=== PATIENT | female | born 1935 | race Caucasian/White ===

== ENCOUNTER 2018-12-27 06:45 | Emergency (ER) | payer MEDICARE | END 2018-12-27 08:46 | disposition home or self-care (01) | LOC: ER 06:45 ==

== ENCOUNTER 2019-02-28 12:31 | Emergency (ER) | payer MEDICARE ==
[~2019-02-28] VITALS: Ht 160 cm; Wt 66.7 kg
[~2019-02-28 12:31] MED LIST: ASPI-875 PO; DARI15TA4 PO; ETD400T; FRSM20T; FURO20TA4 PO; LSRT50T; OMEP20TA2 PO; OMG1KC PO; QUININE; RESTASIS EYE GTTS; RLX60T; VALS1TAB43 PO; VESICARE
[2019-02-28] MEDS ORDERED: CEPH-507 PO (12:52)
--- NOTE | 2019-02-28 12:53 | ED General ---
General Chief Complaint: Allergic Reaction Stated Complaint: FACIAL BURNING / SWELLING Nursing Triage Note: COMPLAINS OF FACIAL REDNESS AND BURNING SINCE DOING YARD WORK ON FRIDAY. Nursing Sepsis Screen: No Definite Risk Source of Information: Patient Exam Limitations: No Limitations History of Present Illness Date Seen by Provider: Feb 28, 2019 Time Seen by Provider: 12:48 Initial Comments To Er with c/o facial itching, swelling redness and burning since clearing brush around old tree stumps 2 days ago. Has used topical calamine lotion for the itch and topical betamethasone cream for this that she had left over at home. Timing/Duration: 1-2 Days Severity: Moderate Associated Systoms: Denies Symptoms Allergies and Home Medications Allergies Coded Allergies: No Known Drug Allergies (Verified Allergy, Unknown, 04/13/07) Home Medications Furosemide 20 Mg Tablet, 20 MG PO DAILY, (Reported) Patient Home Medication List Home Medication List Reviewed: Yes Review of Systems Review of Systems Constitutional: see HPI EENTM: see HPI Respiratory: no symptoms reported Cardiovascular: no symptoms reported Genitourinary: no symptoms reported Musculoskeletal: no symptoms reported Skin: see HPI Psychiatric/Neurological: No Symptoms Reported Hematologic/Lymphatic: No Symptoms Reported Past Tjsiyiy-Oksxxt-Olgcdy Hx Patient Social History Alcohol Use: Denies Use Recreational Drug Use: No Smoking Status: Never a Smoker Recent Foreign Travel: No Contact w/Someone Who Travel: No Recent Infectious Disease Expo: No Recent Hopitalizations: Yes Immunizations Up To Date Date of Pneumonia Vaccine: Jul 07, 2006 Past Medical History Surgeries: Yes (CATARACTS REMOVED,LUMPECTOMY,CARPAL TUNNEL, FX RIGHT SHOULDER) Eye Surgery, Orthopedic Respiratory: No Cardiac: Yes Hypertension Neurological: No Reproductive Disorders: No Gastrointestinal: Yes Gastroesophageal Reflux Musculoskeletal: Yes Arthritis Endocrine: No Cancer: No Psychosocial: No Integumentary: No Blood Disorders: No Physical Exam Vital Signs Vital Signs - First Documented 02/28/19 12:35 Temp 98.4 Pulse 72 Resp 16 B/P (MAP) 140/96 (111) Pulse Ox 96 O2 Delivery Room Air Capillary Refill : Less Than 3 Seconds Height, Weight, BMI Height: 5'3.00" Weight: 147lbs. oz. 66.242066yt; 23.34 BMI Method:Stated General Appearance: No Apparent Distress, WD/WN Eyes: Bilateral Eye Normal Inspection, Bilateral Eye PERRL, Bilateral Eye EOMI HEENT: PERRL/EOMI, TMs Normal, Other (there is some erythema of the chin, nose, cheeks. There is a honey colored exudate over some of these regions. this is most likely a rhus dermatitis with serous fluid from the vesicles. however, impetigo and/or secondary infection is possible. Will give betamethasone IM + Kenalog IM here + outpatient RX for keflex. ) Progress/Results/Core Measures Suspected Sepsis Recent Fever Within 48 Hours: No Infection Criteria Present: None New/Unexplained Altered Menta: No Sepsis Screen: No Definite Risk SIRS Temperature:98.4 Pulse: 72 Respiratory Rate: 16 Blood Pressure 140 /96 Mean: 111 Results/Orders My Orders Orders - GABRIELA LIZ APRN Betamethasone Acet/Na Phos Inj ([place] (02/28/19 13:00) Triamcinolone Acetonide Im (Kenalog-40) (02/28/19 13:00) Cephalexin Capsule (Keflex Capsule) (02/28/19 13:00) Vital Signs/I&O 02/28/19 12:35 Temp 98.4 Pulse 72 Resp 16 B/P (MAP) 140/96 (111) Pulse Ox 96 O2 Delivery Room Air Capillary Refill : Less Than 3 Seconds Blood Pressure Mean: 111 Departure Impression Primary Impression: Facial rash Disposition: 01 HOME, SELF-CARE Condition: Stable Departure-Patient Inst. Decision time for Depature: 12:51 Referrals: LILIYA MEDRANO MD (PCP/Family) Primary Care Physician Patient Instructions: Skin Rash (DC) Add. Discharge Instructions: 1. You can use benadryl at home for itching. One tablet every 6 hours. 2. The steroid injection given here is a long acting and short acting one. You do not need any additional steroids. Take the antibiotic as directed All discharge instructions reviewed with patient and/or family. Voiced understanding. Scripts Cephalexin (Keflex) 500 Mg Capsule 500 MG PO TID, #21 CAP Prov: GABRIELA LIZ APRN 02/28/19 GABRIELA LIZ APRN Feb 28, 2019 12:53
[2019-02-28] MEDS ORDERED: TRIAMCINOLONE ACET (KENALOG-40) 40 MG/ML 1 ML VIAL IM ONE (13:00)
[2019-02-28] MEDS ORDERED: CEPHALEXIN 250 MG (KEFLEX) CAP PO ONE (13:00)
[2019-02-28] MEDS ORDERED: BETAMETHASONE ACE/NA PHOS 6 MG/ML (CELESTONE SOLUSPAN) IM ONE (13:00)
[2019-02-28 13:13] VITALS: BP 140/67
== END 2019-02-28 13:13 | disposition home or self-care (01) ==
LOC: EDUNIT# 12:31 → ER 12:32
DX: R21 Rash and other nonspecific skin eruption (principal); I10 Essential (primary) hypertension; K21.9 Gastro-esophageal reflux disease without esophagitis
CPT/HCPCS: 99284

== ENCOUNTER 2020-12-09 11:53 | Emergency (ER) | payer MEDICARE ==
[~2020-12-09] VITALS: Ht 162.6 cm; Wt 64.9 kg
[~2020-12-09 11:53] MED LIST changes: +CEPH-507 PO
[2020-12-09 12:07] VITALS: BP 161/69
[2020-12-09] MEDS ORDERED: LIDOCAINE 1% INJ 20 ML 20 ML VIAL INJ ONE (12:15)
--- NOTE | 2020-12-09 12:15 | ED Fall/Injury ---
General Chief Complaint: Trauma-Non Activation Stated Complaint: FALL/FACIAL INJ Source: patient Exam Limitations: no limitations (GABRIELA LIZ APRN) History of Present Illness Date Seen by Provider: Dec 09, 2020 Time Seen by Provider: 12:11 Initial Comments To ER with a fall and subsequent facial injury. She tripped and struck the bottom part of her chin on a chair. No loss of consciousness. This occurred about 2 hours ago. She has pain in her jaw, she has a laceration to the inferior midline aspect of the jaw. She also has some midline low back pain that does not radiate Occurred: just prior to arrival Severity: moderate Injuries/Pain Location: face Context: tripped Loss of Consciousness: no loss of consciousness Associated Symptoms (Fall): No Headache; Neck Pain (GABRIELA LIZ APRN) Allergies and Home Medications Allergies Coded Allergies: No Known Drug Allergies (Verified Allergy, Unknown, 04/13/07) Home Medications Cephalexin 500 Mg Capsule, 500 MG PO TID Prescribed by: GABRIELA LIZ on 02/28/19 1252 Furosemide 20 Mg Tablet, 20 MG PO DAILY, (Reported) Patient Home Medication List Home Medication List Reviewed: Yes (GABRIELA LIZ APRN) Review of Systems Review of Systems Constitutional: see HPI Eyes: No Symptoms Reported Ears, Nose, Mouth, Throat: see HPI Respiratory: no symptoms reported Cardiovascular: no symptoms reported Genitourinary: no symptoms reported Musculoskeletal: no symptoms reported Skin: no symptoms reported Psychiatric/Neurological: No Symptoms Reported (GABRIELA LIZ APRN) Past Gigvdnd-Psmfuf-Mzfwon Hx Patient Social History Recent Hopitalizations: Yes (GABRIELA LIZ APRN) Immunizations Up To Date Date of Pneumonia Vaccine: Jul 07, 2006 (GABRIELA LIZ APRN) Past Medical History Surgeries: Yes (CATARACTS REMOVED,LUMPECTOMY,CARPAL TUNNEL, FX RIGHT SHOULDER) Eye Surgery, Orthopedic Respiratory: No Cardiac: Yes Hypertension Neurological: No Reproductive Disorders: No Gastrointestinal: Yes Gastroesophageal Reflux Musculoskeletal: Yes Arthritis Endocrine: No Cancer: No Psychosocial: No Integumentary: No Blood Disorders: No (GABRIELA LIZ APRN) Physical Exam Vital Signs Vital Signs - First Documented 12/09/20 12:07 Temp 36.4 Pulse 79 Resp 18 B/P (MAP) 161/69 (99) O2 Delivery Room Air (ERIKA CHAPA MD) Vital Signs Capillary Refill : (GABRIELA LIZ APRN) Height, Weight, BMI Height: 5'3.00" Weight: 147lbs. oz. 66.324150pr; 23.34 BMI Method:Stated General Appearance: WD/WN, no apparent distress HEENT: PERRL/EOMI, normal ENT inspection, TMs normal, other (The auricle of the left ear has some dried blood. No active bleeding no auricular hematoma. There is a 2 cm laceration inferior midline chin. No visible deformity) Neck: normal inspection, tender lateral Cardiovascular: regular rate, rhythm, no murmur Respiratory: no respiratory distress, no accessory muscle use Gastrointestinal: normal bowel sounds, non tender, soft Extremities: normal range of motion, non-tender Neurologic/Psychiatric: alert, normal mood/affect, oriented x 3 Skin: normal color, warm/dry (GABRIELA LIZ APRN) [place] Coma Score Best Eye Response: (4) Open Spontaneously Best Verbal Response: (5) Oriented Best Motor Response: (6) Obeys Commands [place] Total: 15 (GABRIELA LIZ APRN) Progress/Results/Core Measures Results/Orders Medications Given in ED Current Medications Medications Dose Ordered Sig/Lisa Route Start Time Stop Time Status Last Admin Dose Admin Lidocaine HCl 20 ml ONCE ONCE INJ 12/09/20 12:15 12/09/20 12:16 DC 12/09/20 12:30 20 ML (ERIKA CHAPA MD) Vital Signs/I&O 12/09/20 12:07 Temp 36.4 Pulse 79 Resp 18 B/P (MAP) 161/69 (99) O2 Delivery Room Air (ERIKA CHAPA MD) Progress Progress Note : Progress Note I was physically present in the emergency department as attending physician during the care of this patient. I was not directly involved in this patient's care. (ERIKA CHAPA MD) Departure Communication (Admissions) Laceration repair note: To the inferior midline aspect of the chin is a 2 cm laceration with depth to subcutaneous tissue. This was anesthetized with 3 mL of 1% lidocaine without epinephrine. Scrubbed with chlorhexidine/saline solution and irrigated with plain saline x60 mL. Closed with 1 continuous suture size 5-0 Prolene. To the posterior inferior aspect of the earlobe on the left there is a 1.5 cm laceration which was closed with 1 continuous suture size 5-0 Prolene and 1 simple interrupted suture size 5-0 Prolene. This is inferior and posterior to the cartilaginous material of the ear. (GABRIELA LIZ APRN) Impression Primary Impression: Laceration of jaw Additional Impression: Fall Disposition: HOME, SELF-CARE Condition: Stable Departure-Patient Inst. Decision time for Depature: 12:15 (GABRIELA LIZ APRN) Referrals: KIRBY SCHUMACHER MD (PCP/Family) Primary Care Physician Patient Instructions: Laceration Repair With Stitches (DC) Add. Discharge Instructions: 1. Return to ER for any concerns 2. Follow-up with your doctor next week. Return to ER in about 5 days to have the stitches removed. All discharge instructions reviewed with patient and/or family. Voiced unde rstanding. GABRIELA LIZ APRN Dec 09, 2020 12:15 ERIKA CHAPA MD Dec 09, 2020 15:38
--- NOTE | 2020-12-09 12:44 | Diagnostic Imaging Report ---
PROCEDURE: CT lumbar spine without contrast. TECHNIQUE: Multiple contiguous axial images were obtained through the lumbar spine without the use of intravenous contrast. Sagittal and coronal reformations were then performed. Auto Exposure Controls were utilized during the CT exam to meet ALARA standards for radiation dose reduction. INDICATION: Fall with low back pain. COMPARISON: 09/25/2015. DISCUSSION: Advanced degenerative disc disease is again noted, particularly at L5-S1. Advanced facet arthropathy is noted diffusely, stable. No acute fracture or subluxation identified. The sacroiliac joints are maintained. No pelvic fracture identified within the visualized sacrum. Severe atherosclerotic plaque is again noted throughout the aorta and its major divisions. Alignment is anatomic. IMPRESSION: 1. Stable degenerative disease within the lumbar spine as described. No acute fracture. Dictated by: Dictated on workstation # [id number]
--- NOTE | 2020-12-09 12:53 | Diagnostic Imaging Report ---
PROCEDURE: CT head, face, and cervical spine without contrast. TECHNIQUE: Multiple contiguous axial images were obtained through the head, neck, and facial bones without the use of intravenous contrast. Sagittal and coronal reformations through the cervical spine and facial bones were also performed. Auto Exposure Controls were utilized during the CT exam to meet ALARA standards for radiation dose reduction. INDICATION: Fell. Head, face and neck pain. CT HEAD: There is no mass, shift of the midline or hemorrhage to suggest an acute intracranial abnormality. The ventricles are not abnormally dilated and stable in size when compared to the prior exam of 09/25/2015. The senescent changes seen previously are again evident and no different. The bone windows show no sign of a fracture or of a destructive lesion. There is fluid and mucosal thickening of the sphenoid sinus. This was also present on the prior exam. The sinuses are otherwise generally clear, where visualized. The orbits were not imaged in their entirety but show no acute abnormality. IMPRESSION: 1. There is no evidence for an acute intracranial abnormality. 2. If clinical concern regarding an acute abnormality persists, then MRI would be recommended for further study. CT FACIAL BONES: There are no prior studies for comparison The orbital rims, zygomatic arches, nasal bone and mandible are intact. There is mucosal thickening and fluid within the sphenoid sinus. This is not significantly changed when compared to the prior exam of 09/25/2015. The sinuses are otherwise generally clear. The orbits are symmetrical and within normal limits. IMPRESSION: 1. There is no evidence for an acute bony abnormality. CT CERVICAL SPINE: As noted on the previous exam of 09/25/2015, there is degenerative disc and bony disease at C5-C6 and C6-C7. These degenerative changes do not appear to have progressed significantly since the prior exam. There is no evidence for a high-grade central stenosis at either of these levels although there does appear to be neural foraminal narrowing on the left at C6-C7. The bone windows show no evidence for a fracture or for a destructive lesion. There is no evidence for retropharyngeal edema. The thyroid gland was obscured by streak artifact. The lung apices are clear. IMPRESSION: 1. There is no acute bony abnormality of the cervical spine. Dictated by: Dictated on workstation # [id number]
== END 2020-12-09 13:05 | disposition home or self-care (01) ==
LOC: EDUNIT# 11:53 → ER 11:55
DX: S01.81XA Laceration without foreign body of other part of head, initial encounter (principal); I10 Essential (primary) hypertension; Z79.899 Other long term (current) drug therapy; W01.190A Fall on same level from slipping, tripping and stumbling with subsequent striking against furniture, initial encounter
CPT/HCPCS: 70450; 70486; 72125; 72131

== ENCOUNTER 2020-12-14 10:33 | Emergency (ER) | payer MEDICARE ==
[~2020-12-14] VITALS: Ht 160 cm; Wt 63.6 kg
[2020-12-14 10:37] VITALS: BP 157/72
== END 2020-12-14 11:00 | disposition home or self-care (01) ==
LOC: EDUNIT# 10:33 → ER 10:34
DX: Z48.02 Encounter for removal of sutures (principal)

== ENCOUNTER 2020-12-19 09:34 | Emergency (ER) | payer MEDICARE ==
[~2020-12-19] VITALS: Ht 162 cm; Wt 71.0 kg
[2020-12-19 09:42] VITALS: BP_SYST 156
== END 2020-12-19 09:59 | disposition home or self-care (01) ==
LOC: EDUNIT# 09:34 → ER 09:36
DX: Z48.02 Encounter for removal of sutures (principal)